=== PATIENT | female | born 1980 | race Two or more races ===

== ENCOUNTER 2025-03-27 17:59 | Emergency (ER) | payer OTHER ==
[~2025-03-27] VITALS: Ht 157.5 cm; Wt 49.0 kg
[2025-03-27] MEDS ORDERED: OXYMETAZOLINE NASAL 0.05% 15 ML SPRAY NS ONE (18:14)
[2025-03-27] MEDS: OXYMETAZOLINE NASAL 0.05% 15 ML SPRAY NS ONE (18:20)
[2025-03-27 18:35] VITALS: BP 121/66; TEMP 97.8; O2SAT 100
== END 2025-03-27 18:36 | disposition home or self-care (01) ==
LOC: ER 18:02
DX: H83.8X2 Other specified diseases of left inner ear (principal); E03.9 Hypothyroidism, unspecified
CPT/HCPCS: A4606; A4663